=== PATIENT | male | born 1995 | race African-American/Black ===

== ENCOUNTER 2017-08-27 17:24 | Inpatient (IN) | payer OTHER ==
[~2017-08-27] VITALS: Ht 177.8 cm; Wt 81.6 kg
--- NOTE | ~2017-08-27 | O ---
[facility] [place] [address] OPERATIVE REPORT Name: KEIRY BOOKER Room #: 424-P ADM IN M.R.#: [id number] Admission: 08/27/17 Attend Phys: Dario Joiner MD Discharge: Date of : 89 Report #: [id number] THIS REPORT FOR: //name// CC: Melinda Ramos FAM unknown Dario Garvin DATE OF SERVICE: 08/28/2017 PREOPERATIVE DIAGNOSES: 1. Acute appendicitis. 2. Chronic diarrhea. POSTOPERATIVE DIAGNOSES: 1. Acute nonsuppurative, nonperforated appendicitis. 2. Chronic diarrhea. 3. Single intra-abdominal adhesion. PROCEDURE: 1. Laparoscopic appendectomy. 2. Laparoscopic lysis/removal of adhesion. SURGEON: Clyde Garvin MD NEWSPAPER CORRESPONDENT: None. ANESTHESIA: General endotracheal anesthesia and local anesthetic. ESTIMATED BLOOD LOSS: 5 mL. SPECIMEN: Appendix. COMPLICATIONS: None appreciated. INDICATIONS FOR PROCEDURE: This is an otherwise healthy 22-year-old male patient who has had difficulty with bloody diarrhea over the past 3-1/2 weeks with a 5-pound weight loss. He has had intermittent right lower quadrant abdominal pain as well and had 1 episode of fever with a temperature of 103 degrees. He was seen in the [facility] where he underwent a CT of the abdomen and pelvis showing a dilated appendiceal tip with periappendiceal inflammatory changes. The patient's white blood cell count was elevated at 11.1. He presents now for laparoscopic appendectomy. OPERATIVE FINDINGS: Upon entrance into the abdominal cavity, the sigmoid colon [facility] [address] [place] [address] OPERATIVE REPORT Name: KEIRY BOOKER Room #: 424-P ADM IN M.R.#: [id number] Admission: 08/27/17 Attend Phys: Dario Joiner MD Discharge: Date of : 89 Report #: [id number] appeared to be dilated. A single adhesion was present from the omentum of the mid ileum to the upper anterior pelvic wall. The appendix appeared to be dilated, consistent with CT findings. The appendix itself was also hyperemic. The base of the appendix was uninvolved with acute inflammation. The small bowel appeared otherwise normal with no evidence for a Meckel's diverticulum. Likewise, no creeping fat was seen on the small bowel. The gallbladder and liver appeared normal. The only significant finding otherwise was the dilated sigmoid colon. The colon itself did not appear particularly thickened and no exudate was present. There was no evidence for perforation of the appendix or abscess. There was a small amount of free fluid in the abdominal cavity, however, this was purely serous with no turbidity. At the conclusion of the operation, sponge, needle and instrument counts were correct. No other significant intra-abdominal pathology was identified. The sponge, needle and instrument counts were correct. The patient was stable throughout the operation and to the recovery room. DESCRIPTION OF PROCEDURE IN DETAIL: After the risks, benefits and expectations of the operation were discussed in detail with the patient, informed consent was obtained. The patient was identified in the preoperative holding area. He has been given scheduled IV antibiotics as documented in the chart (Zosyn 3.375 grams IV q.6h). The patient was taken to the operating room and he was placed in the supine position. SCDs were placed on the patient's bilateral lower extremities and pneumatic compression was initiated. The patient was then given IV sedation and he was intubated without incident. His abdomen was prepped and draped in the standard sterile fashion. A time-out was performed to identify the correct patient and procedure. Local anesthetic was infiltrated into the skin and subcutaneous tissue infraumbilically where a curvilinear incision was made with #15 blade scalpel. Dissection was carried down to the fascia. A small fascial nirav was made with #15 blade scalpel and a 12 mm Visiport was placed intraperitoneally with a 0-degree angled laparoscope. Pneumoperitoneum was achieved with insufflation of carbon dioxide to 15 mmHg. A 30-degree angled laparoscope was inserted. The patient was placed in the Trendelenburg position. A suprapubic 5 mm and left lower quadrant 5 mm port were each placed under direct visualization after local anesthetic was infiltrated into the skin and subcutaneous tissue and appropriately sized incisions were made. Operative findings are as noted above. The patient was rotated to his left with the right side up. The single band of scar tissue seen from the small bowel mesentery to the abdominal wall was carefully divided with the ultrasonic dissector. The adhesion did not appear to be a Meckel's diverticulum. The adhesion was divided both proximally and distally and removed from the patient's abdominal cavity. The small bowel was run proximally and there was no evidence for a Meckel's diverticulum. The appendix was then able to be identified. The base of the appendix was seen. A window was made in the mesoappendix adjacent to the base of the appendix. A blue load endoscopic JERARDO stapler was then used to staple and divide the appendix [address] [address] OPERATIVE REPORT Name: KEIRY BOOKER Room #: 424-P [facility] IN M.R.#: [id number] Admission: 08/27/17 Attend Phys: Dario Joiner MD Discharge: Date of : 94 Report #: [id number] at its base. The mesoappendix was then divided with the ultrasonic dissector with good hemostasis, however, there was additional bleeding that was near the cecum. This required hemostasis with Hemoclips. The remainder of the mesoappendix was divided. The appendix was placed in an Endopouch and removed through the infraumbilical port site. The abdominal cavity was then reentered. No other significant intraabdominal pathology was identified. The free fluid was suctioned from the patient's abdominal cavity. Other findings are as noted above. The infraumbilical port site fascial opening was then closed with a [id number] 0 PDS suture using the [place] laparoscopic fascial closure device. The suture was tied under direct visualization to ensure no incorporation of intra-abdominal content. The abdominal cavity was then desufflated and the remaining ports were removed. Interrupted subcuticular 4-0 Monocryl sutures and Dermabond were used to close the skin incisions. The patient tolerated the procedure well. He was awakened, extubated, and taken to recovery room in stable condition with no apparent intraoperative complications. By: [id number] Clyde Garvin MD, FACS /nt
--- NOTE | ~2017-08-27 | HC ---
[facility] [place] [address] CONSULTATION Name: KEIRY BOOKER Room #: 424-P ADM IN M.R.#: [id number] Admission: 08/27/17 Attend Phys: Dario Joiner MD Discharge: Date of : 89 Report #: [id number] THIS REPORT FOR: //name// CC: Melinda Ramos FAM unknown Dario Garvin DATE OF SERVICE: 08/28/2017 REASON FOR CONSULTATION: Abdominal pain, diarrhea. HISTORY OF PRESENT ILLNESS: This is an otherwise healthy 22-year-old male patient who was seen in the [place] emergency room last night with complaints of uncontrollable diarrhea over the past 3-1/2 weeks with 1 episode of fever (temperature as high as 103 degrees Fahrenheit). The patient is passing 4-5 bowel movements a day, which are occasionally bloody. He has had no relief of his symptoms with Imodium. The patient reports a 5-pound weight loss unintentionally since his symptoms have been occurring. He denies a family history for inflammatory bowel disease. Through the emergency room, the patient underwent a CT of the abdomen and pelvis showing possible tip appendicitis with a dilated appendiceal tip and inflammatory changes. Trace free fluid was seen in the pelvis as well. A fat containing right inguinal hernia was also present. I have been asked to see the patient for further evaluation and treatment. PAST MEDICAL HISTORY: Denies. PAST SURGICAL HISTORY: None. MEDICATIONS: No routine medications at home. ALLERGIES: No known drug allergies. FAMILY HISTORY: Reviewed and noncontributory to this hospitalization. He had a great aunt with colon cancer. SOCIAL HISTORY: The patient denies use of tobacco or illicit drugs. He drinks alcohol socially 2-3 times per week (1 or 2 beers every time). 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 REVIEW OF SYSTEMS: As per history of present illness. In addition, GENERAL: The patient currently denies fever or chills, reports a 5-pound unintentional weight loss. HEENT: Denies changes in taste, vision, hearing, or smell. [facility] [address] [place] [address] CONSULTATION Name: KEIRY BOOKER Room #: 424-P [facility] IN M.R.#: [id number] Admission: 08/27/17 Attend Phys: Dario Joiner MD Discharge: Date of : 89 Report #: [id number] RESPIRATORY: Denies shortness of breath, COPD or asthma. CARDIOVASCULAR: Denies chest pain or palpitations. GASTROINTESTINAL: As per history of present illness. Reports bright red blood per rectum. GENITOURINARY: Denies dysuria, urgency, increased urinary frequency or hematuria. MUSCULOSKELETAL: Denies myalgia, arthralgia or arthritis. NEUROLOGIC: Denies headaches, numbness or tingling. PSYCHIATRIC: Denies depression, anxiety, or suicidal ideations. SKIN AND INTEGUMENTARY: Denies new skin lesions, rashes, or moles. ENDOCRINE: Denies polydipsia, polyuria, heat or cold intolerance. HEMATOLOGIC: Denies easy bleeding, bruising or anemia. All other review of systems is negative. PHYSICAL EXAMINATION: VITAL SIGNS: Temperature 97.1, blood pressure 102/56, pulse 61, and respirations 18. GENERAL: This is a well-developed, well-nourished, healthy appearing 22-year-old male patient, in no acute distress. HEENT: Atraumatic, normocephalic with moist mucosal membranes. Oropharynx is clear. He has no scleral icterus. NECK: Supple. No appreciable lymphadenopathy. Trachea is midline. CHEST: Clear bilaterally. No crackles or wheezes. CARDIOVASCULAR: Regular rate and rhythm. ABDOMEN: Soft, but tender to palpation in the right lower quadrant with no rebound or guarding. No palpable masses and a small right groin bulge that is easily reducible with no overlying erythema or edema. GENITOURINARY: Normal external male genitalia. EXTREMITIES: No clubbing, cyanosis, or edema. NEUROLOGIC: Cranial nerves 2-12 are grossly intact. PSYCHIATRIC: Normal mood and affect. SKIN AND INTEGUMENTARY: No acute inflammatory changes, rashes or lesions are present. LABORATORY DATA: CBC shows mild leukocytosis with a white blood cell count of 11.1, hemoglobin 12.6, hematocrit 38.0, and platelets 360. He had 31% eosinophils. Comprehensive metabolic profile shows sodium 137, potassium 4.8, chloride 104, CO2 of 32, BUN 13, creatinine 0.9, and glucose 97. His liver function tests and lipase were within normal limits. Enteric path studies are pending. RADIOLOGIC STUDIES: CT of the abdomen and pelvis, findings are as noted above. IMPRESSION AND PLAN: This is an otherwise healthy 22-year-old male patient with a 3-1/2-week history of intermittent crampy right lower quadrant abdominal pain [facility] [address] [place] [address] CONSULTATION Name: KEIRY BOOKER Room #: 424-P ADM IN MPascual.#: [id number] Admission: 08/27/17 Attend Phys: Dario Joiner MD Discharge: Date of : 89 Report #: [id number] and diarrhea (occasionally bloody) with CT findings for acute appendicitis involving the tip of the appendix. We discussed the pathophysiology and natural history of acute appendicitis as well as treatment alternatives and surgical options. The patient would benefit from laparoscopic appendectomy. We discussed the risks, benefits, and expectations of the operation in detail. The patient expressed understanding and would like to proceed. He will be taken to the operating room at the next earliest availability. Should he have ongoing difficulty with diarrhea postoperatively, a workup for inflammatory bowel disease would be in order, potentially on an outpatient basis. Removal of his appendix, which may be more of a chronic, smoldering appendicitis, may take care of the issue. I sincerely appreciate the opportunity to participate in the care of this patient and we will leave further recommendations and orders in the electronic medical record as appropriate. Thank you very much. <ELECTRONICALLY SIGNED> By: Clyde Garvin MD, FACS 08/28/17 1317 [id number] Clyde aGrvin MD, FACS /nt
--- NOTE | ~2017-08-27 | S ---
[facility] [address] [place] [address] SURGICAL PATH RPT PROCEDURE Name: KEIRY BOOKER Room #: 424-P [facility] IN M.R.#: [id number] Admission: 08/27/17 Date of : 89 Discharge: 08/28/17 Report #: [id number] Path Case #: [id number] PATHOLOGY REPORT DRAFT COLLECTION DATE: 08/28/2017 RECEIVED DATE: 08/28/2017 SPECIMEN(S) RECEIVED: Cecilia
[2017-08-27 17:25] VITALS: BP 120/75
[2017-08-27 18:18] LABS: HEMOGLOBIN 12.6 gm/dL (14.0-18.0); MCH 29.2 pg (26.0-34.0); MCHC 33.1 g/dL (28.0-37.0); PLATELET COUNT 360 thou/uL (150-400); RBC 4.32 mil/uL (4.50-6.00); RDW 12.3 % (10.5-14.5); URINE BILIRUBIN NEGATIVE (Negative); URINE BLOOD NEGATIVE (Negative); URINE COLOR YELLOW; URINE GLUCOSE-RANDOM* NEGATIVE (Negative); URINE KETONES NEGATIVE (Negative); URINE LEUKOCYTES-REFLEX NEGATIVE (Negative); URINE PROTEIN (DIPSTICK) NEGATIVE (Negative); URINE UROBILINOGEN 0.2 E.U./dl (0.2-1.0); WBC 11.1 thou/uL (4.0-11.0)
[2017-08-27 18:19] LABS: MANUAL DIFF YES
[2017-08-27 18:30] LABS: CALCIUM 9.1 mg/dL (8.5-10.1); CREATININE 0.9 mg/dL (0.7-1.3); POTASSIUM 4.8 mmol/L (3.5-5.1)
[2017-08-27 18:35] LABS: ALBUMIN 3.3 g/dL (3.4-5.0); TOTAL BILIRUBIN 0.2 mg/dL (<0.1-1.0); TOTAL PROTEIN 7.1 g/dL (6.4-8.2)
[2017-08-27 18:40] LABS: ABSOLUTE NEUTROPHILS 4.3 thou/uL (1.4-8.2); TOTAL CELL COUNT 100
[2017-08-27 21:49] VITALS: BP 107/70
[2017-08-27 22:11] VITALS: BP 107/70
[2017-08-27 22:25] VITALS: BP 102/64
[2017-08-28] VITALS (10 sets, daily range): BP systolic 102–139; BP diastolic 53–124
[2017-08-28 09:37] LABS: HEMATOCRIT 38.4 % (42.0-52.0); HEMOGLOBIN 12.9 gm/dL (14.0-18.0); MCH 28.9 pg (26.0-34.0); MCHC 33.5 g/dL (28.0-37.0); MCV 86.4 fL (80.0-100.0); PLATELET COUNT 334 thou/uL (150-400); RBC 4.44 mil/uL (4.50-6.00); RDW 12.4 % (10.5-14.5)
[2017-08-28 09:54] LABS: MANUAL DIFF YES
[2017-08-28 10:11] LABS: ABSOLUTE NEUTROPHILS 5.2 thou/uL (1.4-8.2); PLATELET ESTIMATE NORMAL; TOTAL CELL COUNT 100
[2017-08-28] MEDS ORDERED: HYDROCODONE-AP1 EAC6 PO (14:47)
[2017-08-28] MEDS ORDERED: SENNA-S TABLET1 EACH PO (14:47)
== END 2017-08-28 22:20 | disposition home or self-care (01) | DRG 342 ==
LOC: ER 17:24 → EROBS 20:55 → 4E 20:55
PROVIDERS: Emergency Medicine; Surgery
PROC: 0DTJ4ZZ Resection of Appendix, Percutaneous Endoscopic Approach (ICD-10-PCS; principal; 2017-08-28)
DX: K35.80 Unspecified acute appendicitis (principal); K92.1 Melena; K52.9 Noninfective gastroenteritis and colitis, unspecified; K66.0 Peritoneal adhesions (postprocedural) (postinfection); Z85.038 Personal history of other malignant neoplasm of large intestine; Z79.899 Other long term (current) drug therapy
CPT/HCPCS: 10084; 50010